=== PATIENT | male | born 1950 | race Two or more races ===

== ENCOUNTER 2022-04-30 22:38 | Emergency (ER) | payer OTHER ==
[2022-04-30 23:11] VITALS: BMI 23.7
[2022-05-01] MEDS ORDERED: ACETAMINOPHEN 500 MG TABLET (FP) PO ONE (02:27)
[2022-05-01] MEDS ORDERED: IBUPROFEN 600 MG TABLET (FP) PO ONE ×2 (02:31→02:47)
[2022-05-01] MEDS ORDERED: ACETAMINOPHEN 325 MG TABLET (FP) ONE (02:47)
[2022-05-01 03:02] LABS: URINE APPEARANCE CLOUDY; URINE BILIRUBIN NEGATIVE (NEGATIVE); URINE COLOR YELLOW; URINE GLUCOSE (UA) NEGATIVE (NEGATIVE); URINE KETONE 1+ (NEGATIVE); URINE LEUK ESTERASE NEGATIVE (NEGATIVE); URINE NITRITE NEGATIVE (NEGATIVE); URINE PROTEIN NEGATIVE (NEGATIVE); URINE UROBILINOGEN 0.2 mg/dL (0.2-1.0)
[2022-05-01 05:48] LABS: BASO % 0.6 % (0-2.0); EOS % 0.1 % (0-4.5); HEMATOCRIT 45.5 % (35.4-49); HEMOGLOBIN 15.5 GM/dL (11.7-16.9); LYMPH % 7.7 % (8-40); MCH 32.8 pg (25.7-33.7); MCHC 34.1 g/dl (32.0-35.9); MEAN PLT VOLUME 8.7 fl (7.5-11.1); MONO % 3.7 % (3.8-10.2); NEUT % 87.9 % (42.8-82.8); PLATELET COUNT 279 10^3/uL (134-434); RBC 4.74 M/mm3 (4.00-5.60); RDW 14.1 % (11.9-15.9)
[2022-05-01 06:01] VITALS: TEMP 98.5
[2022-05-01 06:14] LABS: ALBUMIN 3.9 g/dl (3.4-5.0); CALCIUM 9.2 mg/dL (8.5-10.1)
[2022-05-01 06:16] LABS: BLOOD UREA NITROGEN 12.3 mg/dL (7-18); MAGNESIUM 1.9 mg/dL (1.8-2.4)
[2022-05-01 06:18] LABS: CREATININE 0.9 mg/dL (0.55-1.3)
[2022-05-01 06:19] LABS: BILIRUBIN,TOTAL 0.5 mg/dL (0.2-1); TOT PROT 7.2 g/dl (6.4-8.2)
[2022-05-01 07:46] VITALS: BP 162/91; PULSE 96; RESP 18
== END 2022-05-01 08:01 | disposition short-term general hospital (02) ==
LOC: JER 22:38 → JERBED 05-01 06:17 → UNDOADMIN 05-01 06:17
DX: I60.9 Nontraumatic subarachnoid hemorrhage, unspecified (principal)
CPT/HCPCS: 0241U-QW; 36415; 70450-TC; 80053; 81003; 83735; 85025; 87086; 93005; 93010; 99285-25